=== PATIENT | female | born 1955 | race Caucasian/White ===

== ENCOUNTER → 2016-03-18 | Outpatient (CLI) | payer BC ==
--- NOTE | 2016-03-18 15:23 | US ---
EXAMINATION TYPE: US thyroid st tissue head/neck DATE OF EXAM: 03/18/2016 2:53 PM COMPARISON: NONE CLINICAL HISTORY: 60-year-old female with E04.1 Thyroid Nodule. Patient stated had prior left thyroid nodule with radioactive iodine TX > 20 years ago; on Synthroid TECHNIQUE: Multiple sonographic images of the thyroid gland were obtained. FINDINGS: Right Lobe: 3.4 x 0.7 x 0.8 cm Left Lobe: 4.1 x 2.1 x 1.5 cm Isthmus Thickness: 0.1 cm Overall Parenchyma: heterogeneous NODULES RIGHT: # of nodules measured on right: 0 LEFT: # of nodules measured on left: 1 1. 1.6 X 0.9 x 0.6 cm hypoechoic ovoid nodule at the lower pole with well-defined margins; present with small amount of microcalcification. This nodule is wider than tall and shows no intranodular va scularity. Prior size: no prior US on PACS ISTHMUS: # of nodules measured in the isthmus: 0 IMPRESSION: Heterogeneous glandular parenchyma suggests chronic thyroiditis. There is a solitary 1.6 cm ovoid nod ule in the left lower pole. The decision to biopsy should be made on a clinical basis.
== END | disposition home or self-care (01) ==
LOC: RADUSWWP 14:21
PROVIDERS: ATTEND Family Medicine
DX: E04.1 Nontoxic single thyroid nodule (principal)
CPT/HCPCS: 76536

== ENCOUNTER → 2016-05-16 | Outpatient (CLI) | payer BC ==
--- NOTE | 2016-05-16 15:00 | NM ---
EXAMINATION TYPE: NM thyroid image only DATE OF EXAM: 05/16/2016 11:46 AM COMPARISON: Thyroid ultrasound 18 March 2016 HISTORY: Thyroid nodule TECHNIQUE: After the intravenous administration of 11 mCi Tc 99m Sodium Pertechnetate. FINDINGS: Thyroid scanning shows some decreased radio pharmaceutical trapping at the left lower pole correspond ing to patient's thyroid nodule. IMPRESSION: Cold thyroid nodule lower pole left lobe of the thyroid gland, gland appears somewhat atr ophic
== END | disposition home or self-care (01) ==
LOC: RADNMMAIN 10:53
PROVIDERS: ATTEND Otolaryngology
DX: E04.1 Nontoxic single thyroid nodule (principal)
CPT/HCPCS: 78013; A9512

== ENCOUNTER 2016-06-06 12:19 | Day surgery (SDC) | payer BC ==
[2016-06-06 12:43] VITALS: RESP 14; TEMP 97.8
[2016-06-06] MEDS ORDERED: ALPRAZolam 0.5 MG TAB PO STA (12:52)
[2016-06-06 14:22] VITALS: BP 138/91; PULSE 87
--- NOTE | 2016-06-06 15:31 | US ---
EXAMINATION TYPE: US FNA thyroid DATE OF EXAM: 06/06/2016 2:16 PM COMPARISON: Previous exam 18 March 2016 HISTORY: Thyroid nodule, E04.1 Maximal barrier technique was utilized. Ultrasound using sterile technique. The skin overlying the no dule was localized with ultrasound and the overlying skin prepped and draped. Lidocaine used for loca l anesthesia. 3 passes with a 25-gauge needle were made into the nodule under ultrasound guidance. As pirate specimen submitted to cytology. Following the procedure hemostasis achieved. No immediate comp lication IMPRESSION: Status post ultrasound-guided fine-needle aspiration of thyroid nodule, pathology pending . The nodule has suspected wall calcification, difficult to assess as to whether specimen obtained fr om within the nodule. Exam was aborted prior to obtaining 5 passes..
== END 2016-06-06 14:20 | disposition home or self-care (01) ==
LOC: RADPROMAIN 12:19
PROVIDERS: ATTEND Otolaryngology
DX: E04.1 Nontoxic single thyroid nodule (principal)
CPT/HCPCS: 10022; 76942; 88173; 88305

== ENCOUNTER → 2016-09-14 | Outpatient (CLI) | payer BC ==
--- NOTE | 2016-09-14 15:59 | US ---
EXAMINATION TYPE: US thyroid st tissue head/neck DATE OF EXAM: 09/14/2016 COMPARISON: 06/06/2016 CLINICAL HISTORY: E04.1 Thyroid Nodule. Thyroid nodule, history of thyroid biopsy, patient on thyroid meds GLAND SIZE: Right Lobe: 3.3 x 0.9 x 0.9 cm Overall Parenchyma: homogenous Left Lobe: 4.0 x 1.0 x 0.9 cm Overall Parenchyma: homogeneous Isthmus Thickness: 0.1 cm NODULES RIGHT: # of nodules measured on right: 0 LEFT: # of nodules measured on left: 1 1. 1.3 X 0.7 x 0.9 cm hypoechoic mixed nodule at the lower pole with well-defined margins. This nod ule is wider than tall and shows no intranodular vascularity. Prior size: 1.6 x 0.9 x 0.6 cm ISTHMUS: # of nodules measured in the isthmus: 0 Bilateral neck scanned, left neck: multiple hypoechoic areas seen with largest measuring 1.4cm, proba ble lymph nodes. IMPRESSION: 1. Irregular hypoechoic nodule lower pole left thyroid lobe persists although slightly smaller in siz e. This lesion has been biopsied previously. 2. Scattered lymph nodes within the neck.
== END | disposition home or self-care (01) ==
LOC: RADUSWWP 15:20
PROVIDERS: ATTEND Otolaryngology
DX: E04.1 Nontoxic single thyroid nodule (principal)
CPT/HCPCS: 76536

== ENCOUNTER → 2017-10-13 | Outpatient (CLI) | payer BC ==
--- NOTE | 2017-10-13 18:45 | US ---
EXAMINATION TYPE: US thyroid st tissue head/neck DATE OF EXAM: 10/13/2017 COMPARISON: Previous dated 01/30/2017 CLINICAL HISTORY: E04.1 THYROID NODULE. Follow up thyroid nodule GLAND SIZE: Right Lobe: 3.5 x 0.9 x 1.0 cm Overall Parenchyma: homogenous Left Lobe: 3.1 x 0.9 x 1.1 cm Overall Parenchyma: homogeneous Isthmus Thickness: 0.2 cm NODULES RIGHT: # of nodules measured on right: 0 LEFT: # of nodules measured on left: 1 1. 1.3 X 0.6 x 0.9 cm hypoechoic mixed nodule at the lower pole with well-defined margins; interrup curt peripheral calcification. This nodule is wider than tall and shows no intranodular vascularity. Prior size: 1.3 x 0.5 x 0.9 cm ISTHMUS: # of nodules measured in the isthmus: 0 Bilateral neck scanned, lymph nodes left neck IMPRESSION: Findings are similar to prior exam. Somewhat atrophic gland. Stable nodule.
== END | disposition home or self-care (01) ==
LOC: RADUSWWP 16:26
PROVIDERS: ATTEND Otolaryngology
DX: E04.1 Nontoxic single thyroid nodule (principal)
CPT/HCPCS: 76536

== ENCOUNTER → 2018-11-20 | Outpatient (CLI) | payer BC ==
--- NOTE | 2018-11-20 16:18 | US ---
EXAMINATION TYPE: US thyroid st tissue head/neck DATE OF EXAM: 11/20/2018 COMPARISON: NONE CLINICAL HISTORY: E04.1 Thyroid nodule. Thyroid nodule. GLAND SIZE: Right Lobe: 3.2 x .8 x 1.1 cm Overall Parenchyma: heterogenous Left Lobe: 2.9 x .7 x .9 cm Overall Parenchyma: heterogeneous Isthmus Thickness: .2 cm NODULES RIGHT: # of nodules measured on right: 0 LEFT: # of nodules measured on left: 1 1. 1.0 X .5 x .6 cm hypoechoic nodule at the lower pole with poorly defined margins; . This nodul e is wider than tall and shows no intranodular vascularity. Prior size: 1.3 x .6 x .9 cm ISTHMUS: # of nodules measured in the isthmus: 0 Bilateral neck scanned, no evidence of lymphadenopathy. IMPRESSION: 1. Borderline size nodule within the left lobe thyroid with longest dimension being 1.0 cm. This is s maller than the comparison.
== END | disposition home or self-care (01) ==
LOC: RADUSWWP 14:57
PROVIDERS: ATTEND Otolaryngology
DX: E04.1 Nontoxic single thyroid nodule (principal)
CPT/HCPCS: 76536

== ENCOUNTER → 2020-10-08 | Outpatient (CLI) | payer MEDICARE, BC ==
--- NOTE | 2020-10-08 14:14 | MR ---
EXAMINATION TYPE: MR cervical spine wo/w con DATE OF EXAM: 10/08/2020 COMPARISON: NONE HISTORY: 65-year-old female Neck pain, numbness right arm, headaches. History of prior surgery. Technique: Multiplanar, multisequence images of the cervical spine were obtained before and after adm inistration of 7.5 mL intravenous Gadavist gadolinium contrast. FINDINGS: Post surgical change of C5-C7 ACDF. Mild multilevel degenerative disc disease with posterior disc bulges. Scattered ligamentum flavum thickening especially at C3-C4. Multilevel facet and uncovertebral joint arthropathy is present. The changes are particularly severe towards the right at C3-C4 and C4-C5 with secondary marrow edema. Adjacent enhancing soft tissue emerald a as well. Straightening of the normal cervical lordosis but with preserved alignment. No suspicious bone marrow replacement. No craniocervical junction anomaly, predental space widening, or prevertebral soft tissue swelling. At C2-C3, facet arthropathy. No significant canal or foraminal stenosis. At C3-C4, posterior disc bulge with hypertrophic facet and uncovertebral joint arthropathy, particula rly towards the right. Changes result in a moderate right neuroforaminal stenosis. Along with ligamen mone flavum thickening, there is mild overall spinal canal stenosis with abutment of the dorsal cord. At C4-C5, uncovertebral joint and facet arthropathy especially on the right contributes to a moderate neuroforaminal stenosis. No significant spinal canal stenosis. At C5-C6, there is residual osteophytic ridging impressing on the ventral thecal sac without signific ant spinal canal stenosis. No significant neuroforaminal stenosis. At C6-C7, posterior disc osteophyte complex and mild ligamentum flavum thickening. Hyperostotic uncov ertebral joint and facet changes. Mild left neuroforaminal stenosis. There is residual mild narrowing of the spinal canal without any abutment of the cord. At C7-T1, left-sided uncovertebral joint arthropathy. No significant canal or foraminal stenosis. Normal course, caliber, and signal intensity of the cervical spinal cord. No abnormal enhancement within the spinal canal. IMPRESSION: 1. Status post C5-C7 ACDF. 2. There is severe hypertrophic facet arthropathy towards the right at C3-C4 and C4-C5 with secondary marrow edema and surrounding adjacent enhancing soft tissue edema as well that is likely reactive. 3. Mild multilevel degenerative disc disease. Some levels of ligamentum flavum thickening especially at C3-C4. Scattered facet and uncovertebral joint arthropathy. 4. Changes result in mild spinal canal stenosis at C3-C4 with abutment of the dorsal cord but no cord compression. Moderate right neuroforaminal stenosis. Additional moderate right neuroforaminal steno sis at C4-C5. 5. Residual osteophytic ridging at the fused C5-C6 level along with mild ligamentum flavum thickening results in a residual mild narrowing of the spinal canal. No barry canal compromise or cord compress ion.
== END | disposition home or self-care (01) ==
LOC: RADMRIMAIN 10:37
PROVIDERS: ATTEND Nurse Practitioner Adult Health
DX: M48.02 Spinal stenosis, cervical region (principal); M54.12 Radiculopathy, cervical region; M46.92 Unspecified inflammatory spondylopathy, cervical region; M50.31 Other cervical disc degeneration, high cervical region; M43.22 Fusion of spine, cervical region
CPT/HCPCS: 72156; A9585